=== PATIENT | male | born 1950 | race Caucasian/White ===

== ENCOUNTER 2016-08-28 12:47 | Outpatient (CLI) | payer MEDICARE, OTHER | END 2016-08-28 12:48 | disposition home or self-care (01) | DX: K76.0 Fatty (change of) liver, not elsewhere classified (principal); B18.2 Chronic viral hepatitis C ==

== ENCOUNTER 2021-06-15 01:44 | Outpatient (CLI) | payer OTHER | END 2021-06-15 01:45 | disposition critical access hospital (66) | LOC: EMS 01:44 | DX: R51.9 Headache, unspecified (principal); R26.0 Ataxic gait; R20.2 Paresthesia of skin; H53.8 Other visual disturbances; I10 Essential (primary) hypertension | CPT/HCPCS: A0425; A0429 ==

== ENCOUNTER 2021-06-15 02:17 | Inpatient (IN) | payer MEDICARE, OTHER ==
--- NOTE | 2021-06-15 02:16 | ED Physician Documentation ---
PD HPI FOCAL NEURO - Stated complaint Stated Complaint: JIMENEZ/BLURRED VISION - History obtained from History obtained from: Patient - History of Present Illness Timing - onset: Enter time (12:00 (noon)) Timing - details: Abrupt onset Severity of deficit: Mild Numbness: Arm, Hand, Leg, Foot, Left Associated symptoms: Headache. No: Nausea / vomiting, Chest pain, Neck pain, Back pain, Fever Contributing factors: negative: Anticoagulated, Vascular dz, Atrial fibrillation, Prosthetic heart valve Baseline status: positive: A&OX3, ambulatory, indep Similar symptoms before: Has not had sx before Recently seen: Not recently seen - Additional information Additional information: BIBA. Patient developed rapid onset right retro-orbital headache around noon associated with bilateral visual changes; he denies double/blurry vision, but he says he has difficulty seeing the left-most part of a word when reading or the left side of a clockface. He denies having had similar headache and/or visual changes in the past. At approximately 8 PM, he found that he was unsteady when he tried to ambulate and around this time he also noted LUE and LLE numbness. He denies having any weakness. He says his symptoms have improved significantly, with the LUE no longer numb and the LLE only with mild "pins and needles" (per patient). his right sided headache persists Review of Systems Constitutional: reports: Reviewed and negative Eyes: reports: Loss of vision Ears: reports: Reviewed and negative Nose: reports: Reviewed and negative Throat: reports: Reviewed and negative Cardiac: reports: Reviewed and negative Respiratory: reports: Reviewed and negative GI: reports: Reviewed and negative : reports: Reviewed and negative Skin: reports: Reviewed and negative Musculoskeletal: reports: Reviewed and negative Neurologic: reports: Numbness. denies: Generalized weakness, Focal weakness, Di fficulty speaking, Confused, Altered mental status, Headache, Head injury, LOC PD PAST MEDICAL HISTORY - Past Medical History Past Medical History: Yes Cardiovascular: Hypertension - Past Surgical History Past Surgical History: No - Present Medications Home Medications: Ambulatory Orders Medication Instructions Recorded Confirmed Lisinopril [Zestril] 10 mg PO DAILY 06/15/21 06/15/21 - Allergies Allergies/Adverse Reactions: Allergies Allergy/AdvReac Type Severity Reaction Status Date / Time iodine Allergy Anaphylaxis Verified 06/15/21 02:28 shellfish derived Allergy Anaphylaxis Verified 06/15/21 02:29 - Living Situation Living Arrangement: reports: At home - Social History Does the pt smoke?: Yes Smoking Status: Current every day smoker PD ED PE NORMAL - Vitals Vital signs reviewed: Yes - General General: Alert and oriented X 3, No acute distress, Well developed/nourished - HEENT HEENT: Atraumatic, PERRL, EOMI, Moist mucous membranes - Neck Neck: Supple, no meningeal sign - Cardiac Cardiac: RRR, No murmur, No gallop, No rub - Respiratory Respiratory: No respiratory distress, Clear bilaterally - Abdomen Abdomen: Soft, Non tender - Extremities Extremities: No edema - Neuro Neuro: Alert and oriented X 3, 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, No motor deficit, No sensory deficit, Normal speech Eye Opening: Spontaneous Motor: Obeys Commands Verbal: Oriented GCS Score: 15 - Psych Psych: Normal mood, Normal affect NIHSS - Level of Consciousness Level of consciousness: (0) Alert, Keenly responsive LOC Questions: (0) Answers both Q's correct LOC Commands: (0) Performs both correctly - Gaze Best Gaze: (0) Normal - Visual Visual: (0) No loss - Facial Palsy Facial Palsy: (0) Normal, symmetrical movement - Motor Arms (both separate) Motor Arm (right): (0) No drift Motor Arm (left): (0) No drift - Motor Legs (both separate) Motor Leg (right): (0) No drift Motor Leg (left): (0) No drift - Limb Ataxia Limb Ataxia: (0) Absent - Sensory Sensory: (0) Normal - Best Language Best Language: (0) No aphasia - Dysarthria Dysarthria: (0) Normal - Extinction and Inattention (formally neg Extinction and inattention: (0) No abnormality - Total Score/Results Total Score/Result: 0 Results - Vitals Vitals: Vital Signs - 24 hr 06/15/21 06/15/21 06/15/21 02:29 02:45 03:00 Temperature 37.1 C 37.1 C Heart Rate 91 78 78 Respiratory 12 11 L 11 L Rate Blood Pressure 193/92 H 193/90 H 176/86 H O2 Saturation 100 100 98 06/15/21 03:30 Temperature Heart Rate 80 Respiratory 17 Rate Blood Pressure 187/90 H O2 Saturation 98 Oxygen O2 Source Room air - EKG (time done) No standard instances Rate: Rate (enter#) (85) Rhythm: NSR [place]: Normal Intervals: Normal DC QRS: Normal Ischemia: Non specific changes (V4-V6 NSST changes) - Labs Labs: Laboratory Tests 06/15/21 06/15/21 06/15/21 02:29 02:29 02:29 WBC 13.5 H RBC 4.37 L Hgb 12.5 L Hct 38.7 L MCV 88.6 MCH 28.6 MCHC 32.3 RDW 13.2 Plt Count 328 MPV 10.7 Neut # (Auto) 8.1 H Lymph # (Auto) 3.8 H [place] # (Auto) 1.2 H Eos # (Auto) 0.3 Baso # (Auto) 0.1 Absolute Nucleated RBC 0.00 Nucleated RBC % 0.0 PT 11.6 INR 1.0 APTT 30.1 Sodium 139 Potassium 3.6 Chloride 104 Carbon Dioxide 25 Anion Gap 10.0 BUN 13 Creatinine 1.3 H Estimated GFR (MDRD) 55 L Glucose 112 H Calcium 9.4 Total Bilirubin 0.6 AST 18 ALT 11 Alkaline Phosphatase 77 Troponin I High Sens Total Protein 8.0 Albumin 4.0 Globulin 4.0 Albumin/Globulin Ratio 1.0 Triglycerides Cholesterol LDL Cholesterol, Calc VLDL Cholesterol HDL Cholesterol LDL/HDL Ratio Cholesterol/HDL Ratio Lipase 39 TSH Nasal Adenovirus (PCR) Nasal B. parapertussis DNA (PCR) Nasal Coronavir 229E PCR Nasal Coronavir HKU1 PCR Nasal Coronavir NL63 PCR Nasal Coronavir OC43 PCR Nasal Enterovir/Rhinovir PCR Nasal Influenza B PCR Nasal Influenza A PCR Nasal Parainfluen 1 PCR Nasal Parainfluen 2 PCR Nasal Parainfluen 3 PCR Nasal Parainfluen 4 PCR Nasal RSV (PCR) Nasal B.pertussis DNA PCR Nasal C.pneumoniae (PCR) Constantin Human Metapneumo PCR Nasal M.pneumoniae (PCR) Nasal SARS-CoV-2 (PCR) 06/15/21 06/15/21 06/15/21 02:29 02:29 02:29 WBC RBC Hgb Hct MCV MCH MCHC RDW Plt Count MPV Neut # (Auto) Lymph # (Auto) [place] # (Auto) Eos # (Auto) Baso # (Auto) Absolute Nucleated RBC Nucleated RBC % PT INR APTT Sodium Potassium Chloride Carbon Dioxide Anion Gap BUN Creatinine Estimated GFR (MDRD) Glucose Calcium Total Bilirubin AST ALT Alkaline Phosphatase Troponin I High Sens 8.2 Total Protein Albumin Globulin Albumin/Globulin Ratio Triglycerides 226 H Cholesterol 218 H LDL Cholesterol, Calc 141 H VLDL Cholesterol 45 HDL Cholesterol 32 L LDL/HDL Ratio 4.4 Cholesterol/HDL Ratio 6.8 Lipase TSH 3.84 Nasal Adenovirus (PCR) Nasal B. parapertussis DNA (PCR) Nasal Coronavir 229E PCR Nasal Coronavir HKU1 PCR Nasal Coronavir NL63 PCR Nasal Coronavir OC43 PCR Nasal Enterovir/Rhinovir PCR Nasal Influenza B PCR Nasal Influenza A PCR Nasal Parainfluen 1 PCR Nasal Parainfluen 2 PCR Nasal Parainfluen 3 PCR Nasal Parainfluen 4 PCR Nasal RSV (PCR) Nasal B.pertussis DNA PCR Nasal C.pneumoniae (PCR) Constantin Human Metapneumo PCR Nasal M.pneumoniae (PCR) Nasal SARS-CoV-2 (PCR) 06/15/21 03:06 WBC RBC Hgb Hct MCV MCH MCHC RDW Plt Count MPV Neut # (Auto) Lymph # (Auto) [place] # (Auto) Eos # (Auto) Baso # (Auto) Absolute Nucleated RBC Nucleated RBC % PT INR APTT Sodium Potassium Chloride Carbon Dioxide Anion Gap BUN Creatinine Estimated GFR (MDRD) Glucose Calcium Total Bilirubin AST ALT Alkaline Phosphatase Troponin I High Sens Total Protein Albumin Globulin Albumin/Globulin Ratio Triglycerides Cholesterol LDL Cholesterol, Calc VLDL Cholesterol HDL Cholesterol LDL/HDL Ratio Cholesterol/HDL Ratio Lipase TSH Nasal Adenovirus (PCR) NOT DETECTED Nasal B. parapertussis DNA (PCR) NOT DETECTED Nasal Coronavir 229E PCR NOT DETECTED Nasal Coronavir HKU1 PCR NOT DETECTED Nasal Coronavir NL63 PCR NOT DETECTED Nasal Coronavir OC43 PCR NOT DETECTED Nasal Enterovir/Rhinovir PCR NOT DETECTED Nasal Influenza B PCR NOT DETECTED Nasal Influenza A PCR NOT DETECTED Nasal Parainfluen 1 PCR NOT DETECTED Nasal Parainfluen 2 PCR NOT DETECTED Nasal Parainfluen 3 PCR NOT DETECTED Nasal Parainfluen 4 PCR NOT DETECTED Nasal RSV (PCR) NOT DETECTED Nasal B.pertussis DNA PCR NOT DETECTED Nasal C.pneumoniae (PCR) NOT DETECTED Constantin Human Metapneumo PCR NOT DETECTED Nasal M.pneumoniae (PCR) NOT DETECTED Nasal SARS-CoV-2 (PCR) NOT DETECTED - Rads (name of study) CT head Radiology: Prelim report reviewed, See rad report PD MEDICAL DECISION MAKING - ED course Complexity details: reviewed results, re-evaluated patient, considered differential, d/w patient ED course: Telestroke consulted (Dr. Cr) after CTH completed and tests resulted. He recommends MRI/MRA and give ASA PO QD (please see consult for details). I asked Dr. Cr if CTA head/neck should be undertaken at this time; he says this isn't necessary at this time provided the MRI/MRA can be performed later today (I had also explained MRI not available at night but will be available later this morning). - TPA CVA checklist Inclusion crititeria: positive: CT no bleed. negative: Sig neuro deficit, Onset know < 4.5 hr Departure - Departure Disposition: ED Place in Observation Clinical Impression: Visual changes, Paresthesia Condition: Stable Discharge Date/Time: 06/15/21 04:13
[2021-06-15 02:36] LABS: BASOPHILS # (AUTO) 0.1 10^3/uL (0.0-0.1); BASOPHILS % (AUTO) 0.5 %; EOSINOPHILS # (AUTO) 0.3 10^3/uL (0.0-0.7); EOSINOPHILS % (AUTO) 2.4 %; HCT - HEMATOCRIT 38.7 % (42.0-52.0); HGB - HEMOGLOBIN 12.5 g/dL (14.0-18.0); LYMPHOCYTES # (AUTO) 3.8 10^3/uL (1.5-3.5); LYMPHOCYTES % (AUTO) 28.2 %; MEAN CORPUSCULAR HEMOGLOBIN 28.6 pg (27.0-31.0); MEAN CORPUSCULAR HGB CONC 32.3 g/dL (32.0-36.0); MEAN CORPUSCULAR VOLUME 88.6 fL (80.0-94.0); MEAN PLATELET VOLUME 10.7 fL (7.4-11.4); MONOCYTES # (AUTO) 1.2 10^3/uL (0.0-1.0); MONOCYTES % (AUTO) 8.9 %; NEUTROPHILS # (AUTO) 8.1 10^3/uL (1.5-6.6); NEUTROPHILS % (AUTO) 59.8 %; PLT - PLATELET COUNT 328 10^3/uL (130-450); RED BLOOD COUNT 4.37 10^6/uL (4.70-6.10); RED CELL DISTRIBUTION WIDTH 13.2 % (12.0-15.0); WHITE BLOOD COUNT 13.5 x10^3/uL (4.8-10.8)
[2021-06-15 02:52] LABS: PT - PROTHROMBIN TIME 11.6 secs (9.9-12.6)
[2021-06-15 02:59] LABS: BILIRUBIN,TOTAL 0.6 mg/dL (0.2-1.0); CALCIUM 9.4 mg/dL (8.5-10.3); CREATININE 1.3 mg/dL (0.6-1.2); POTASSIUM 3.6 mmol/L (3.5-5.0)
[2021-06-15 03:00] LABS: PARTIAL THROMBOPLASTIN TIME 30.1 secs (24.9-33.3)
[2021-06-15] MEDS ORDERED: ASPIRIN CHEW 81 MG TABLET PO STA (03:13)
[2021-06-15] MEDS ORDERED: ONDANSETRON 4 MG/2 ML VIAL IVP PRN (03:44)
[2021-06-15] MEDS ORDERED: SODIUM CHLORIDE FLUSH 0.9% 10 ML SYRINGE IVP PRN (03:44)
--- NOTE | 2021-06-15 03:47 | HISTORY & PHYSICAL EXAMINATION ---
Chief Complaint - Chief Complaint Chief Complaint: right eye pain and bluriness, left leg and arm numbness History of Present Illness - Admitted From Admitted From:: [facility] ED - History Obtained From Records Reviewed: yes History obtained from: patient - History of Present Illness HPI Comment/Other: Patient is a 71-year-old male who presented to the ED with complaint of pain behind his right eye which started around noon. His vision then became blurry. He did not immediately seek medical attention. Tonight around 10 PM while he was getting ready for bed he felt "woozy". He also began experiencing left leg and left arm numbness. Furthermore he described a feeling of tingling and numbness on his lips and a metallic taste. As a result EMS was called and he was brought to the ED for evaluation. By the time of exam his symptoms had resolved except for very faint numbness in his left leg. Work-up in the ED included CT of the head without contrast which was negative for any acute intracranial pathology. Telestroke consult was made and recommendation was for an MRI/MRA head and neck for further work-up. As a result the patient was presented for admission. At bedside he was resting comfortably. He denied chest pain, dyspnea, abdominal pain, nausea, vomiting, fever or chills. He reports feeling bloated. His neuro exam was negative. History - Past Medical History Cardiovascular: reports: Hypertension, High cholesterol Neuro: reports: Headaches GI: reports: Hepatitis Musculoskeletal: reports: Osteoarthritis, Other MRSA Hx?: No Other Past Medical History: chronic rt knee pain - Past Surgical History Other past surgical history: He denies any surgical history - Family & Social History Family History Comment/Other: His father at age 51 from an ID. His mother at age 89 from Alzheimer's. One of his siblings, a sister from unknown cause. Social History Notes: He lives at home with a significant order. He is independent of activities of daily living. 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 He smokes 1 pack of cigarettes daily and has been smoking for 50 years. He rarely consumes alcohol. He uses CBD for sleep. - POLST Patient has POLST: No POLST Status: DNR Meds/Allgy - Home Medications Home Medications: Ambulatory Orders Medication Instructions Recorded Confirmed Lisinopril [Zestril] 10 mg PO DAILY 06/15/21 06/15/21 - Allergies Allergies/Adverse Reactions: Allergies Allergy/AdvReac Type Severity Reaction Status Date / Time iodine Allergy Anaphylaxis Verified 06/15/21 02:28 shellfish derived Allergy Anaphylaxis Verified 06/15/21 02:29 Review of Systems - Constitutional Constitutional: denies: Fatigue, Fever, Weakness, Poor appetite - Eyes Eyes: reports: Pain, Blurred vision - Ears, Nose & Throat Ears, Nose & Throat: denies: Vertigo - Cardiovascular Cariovascular: denies: Chest pain, Edema, Lightheadedness, Syncope, Exertional dyspnea - Respiratory Respiratory: denies: Wheezing, SOB at rest, SOB with exertion - Gastrointestinal Gastrointestinal: reports: Bloating. denies: Abdominal pain, Abdominal dis tention, Nausea, Vomiting - Genitourinary Genitourinary: denies: Dysuria, Frequency, Urgency - Musculoskeletal Musculoskeletal: reports: Joint pain (Right knee). denies: Muscle pain, Back pain - Integumentary Integumentary: denies: Rash, Pruritis, Lesions - Neurological Neurological: reports: Numbness. denies: General weakness, Focal weakness, Headache - Psychiatric Psychiatric: denies: Depression, Anxiety - Endocrine Endocrine: denies: Polyuria, Polydypsia - Hematologic/Lymphatic Hematologic/Lymphatic: denies: Anemia, Bruising, Petechiae Prior Level of Functionality: He is independent of activities of daily living. 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 Exam - Vital Signs Vital Signs: Vital Signs x48h Temp Pulse Resp BP Pulse Ox 06/15/21 03:30 80 17 187/90 H 98 06/15/21 03:00 78 11 L 176/86 H 98 06/15/21 02:45 37.1 C 78 11 L 193/90 H 100 06/15/21 02:29 37.1 C 91 12 193/92 H 100 - Physical Exam General Appearance: positive: No acute distress, Alert Eyes Bilateral: positive: PERRL, EOMI ENT: positive: No signs of dehydration Neck: positive: No JVD, Trachea midline Respiratory: positive: Chest non-tender, No respiratory distress, Breath sounds nml. negative: Wheezes, Rales, Rhonchi Cardiovascular: positive: Regular rate & rhythm, No murmur Abdomen: positive: Non-tender, No organomegaly, Nml bowel sounds, No distention. negative: Guarding, Rebound Back: positive: Nml inspection Skin: positive: No rash, Warm, Dry Extremities: positive: Non-tender, Full ROM, Nml appearance, No pedal edema Neurologic/Psychiatric: positive: Oriented x3, Motor nml, Sensation nml, Mood/affect nml Conclusion/Plan - Problem List (1) TIA (transient ischemic attack) Conclusion/Plan: Symptoms consisted of right retro-orbital pain, blurry vision, numbness in left arm and left leg and numbness and tingling around lips. Symptoms have all resolved except for faint numbness and left leg. CT brain without contrast was negative for any acute intracranial abnormality. Telestroke consult done. Recommended MRI/MRA head and neck. This has been ordered. 2D echocardiogram, lipid panel, hemoglobin A1c also ordered. Neurochecks every shift. (2) Hypertension Conclusion/Plan: Patient takes lisinopril 10 mg p.o. daily at home. At presentation systolic blood pressure was 193. We will treat if systolic blood pressure greater than 180. Hydralazine 10 mg every 4 hours as needed ordered. (3) Osteoarthritis Conclusion/Plan: Patient is reluctant to undergo surgery. Pain management as needed. Qualifiers: Osteoarthritis location: knee Laterality: right (4) MOON (acute kidney injury) Conclusion/Plan: Mild. Possibly chronic. Creatinine 1.3 with estimated GFR of 55. Possibly secondary to hypertension. Will monitor. (5) Leukocytosis Conclusion/Plan: WBC was 13.5. Suspect this is reactive. Will monitor. - Lab Results Fish Bones: 06/15/21 02:29 06/15/21 02:29 Core Measures - Anticipated LOS I expect patient to be DC'd or transferred within 96 hours.: Yes - DVT/VTE - Prophylaxis VTE/DVT Device ordered at admit?: Yes
[2021-06-15 04:05] LABS: B. PARAPERTUSSIS- RESP PCR PAN NOT DETECTED; B. PERTUSSIS- RESP PCR PANEL NOT DETECTED; C. PNEUMONIAE- RESP PCR PANEL NOT DETECTED; CORONAVIRUS 229E-RESP PCR NOT DETECTED; CORONAVIRUS HKU1-RESP PCR NOT DETECTED; CORONAVIRUS NL63-RESP PCR NOT DETECTED; CORONAVIRUS OC43-RESP PCR NOT DETECTED; HUMAN METAPNEUMOVIRUS NOT DETECTED; INFLUENZA A- RESP PCR PANEL NOT DETECTED; INFLUENZA B - RESP PCR PANEL NOT DETECTED; M. PNEUMONIAE- RESP PCR PANEL NOT DETECTED; PARAINFLUENZA VIRUS 1 NOT DETECTED; PARAINFLUENZA VIRUS 2 NOT DETECTED; PARAINFLUENZA VIRUS 3 NOT DETECTED; PARAINFLUENZA VIRUS 4 NOT DETECTED; RHINOVIRUS/ENTEROVIRUS NOT DETECTED; RSV- RESP PCR PANEL NOT DETECTED; SARS-CoV-2 -RESP PCR PANEL NOT DETECTED
[2021-06-15] MEDS ORDERED: hydrALAZINE INJ 20 MG/ML VIAL IVP PRN (04:10)
[2021-06-15 04:12] LABS: CHOL/HDL RATIO 6.8 (<5.0); CHOLESTEROL 218 mg/dL; HDL CHOLESTEROL 32 mg/dL; LDL CHOLESTEROL,CALCULATED 141 mg/dL; LDL/HDL RATIO 4.4 (<3.6); TRIGLYCERIDES 226 mg/dL; VLDL CHOLESTEROL 45 mg/dL
--- NOTE | 2021-06-15 08:43 | CT Report ---
PROCEDURE: Head W/O Stroke Protocol INDICATIONS: headache, numbness TECHNIQUE: Noncontrast 4.5 mm thick angled axial sections acquired from the foramen magnum to the vertex, with c oronal reformats. For radiation dose reduction, the following was used: automated exposure control, adjustment of mA and/or kV according to patient size. COMPARISON: FINDINGS: Image quality: Excellent. The ventricular system and cortical sulci demonstrate atrophy, consistent for patient's stated age. There are areas of hypodensity in the periventricular and subcortical white matter. There is no acut e intra or extra-axial fluid collection. No acute hemorrhage, mass lesion or midline shift. Focus o f low-attenuation is noted within the right centrum semiovale most suggestive of old ischemia. Brains tem is unremarkable. Globes are symmetrical. Sinuses are aerated. Osseous structures are intact. IMPRESSION: 1. No acute intracranial process. 2. Moderate atrophy and chronic microvascular ischemic changes. The above findings are concordant with preliminary report. This study fulfills neurological imaging criteria for inclusion or exclusion of acute stroke therapie s based on available published neurological imaging guidelines. Reviewed by: Shara Hidalgo MD on 06/15/2021 8:42 AM PST Approved by: Shara Hidalgo MD on 06/15/2021 8:42 AM PST Station ID: [id number]
[2021-06-15] MEDS: ACETAMINOPHEN 325 MG TABLET PO PRN ×2 (09:54→22:46)
[2021-06-15] MEDS: SODIUM CHLORIDE FLUSH 0.9% 10 ML SYRINGE IVP SCH ×2 (09:58→17:15)
[2021-06-15] MEDS ORDERED: GADOBUTROL 10 MMOL/10 ML VIAL ONE (10:32)
[2021-06-15] MEDS: NICOTINE 14 MG PATCH TOP SCH (12:04)
[2021-06-15 12:23] LABS: ESTIMATED AVERAGE GLUCOSE 117 mg/dL (70-100); HEMOGLOBIN A1c% 5.7 % (4.27-6.07)
--- NOTE | 2021-06-15 13:33 | MRI Report ---
PROCEDURE: Brain W/WO INDICATIONS: RIGHT EYE PAIN AND BLURRINESS CONTRAST: IV CONTRAST: Gadavist ml: 10 TECHNIQUE: Noncontrast axial T1 spin echo, axial T2 fast spin echo, sagittal and axial FLAIR, coronal T2 fast sp in echo, axial gradient echo, axial diffusion and ADC through the brain. After the administration of contrast, axial and coronal T1 spin echo with fat saturation through the brain. COMPARISON: MRA head and neck 06/07/2021. FINDINGS: Image quality: Excellent. The ventricular system and cortical sulci demonstrate atrophy, consistent for patient's stated age. There are areas of hyperintense T2/FLAIR signal in the periventricular and subcortical white matter. There is no acute intra or extra-axial fluid collection. No acute hemorrhage, mass lesion or midlin e shift. Brainstem is unremarkable. Hyperintensity within the right occipital lobe is present with c orresponding hyperintense T2/FLAIR and hypointense ADC signal. Globes are symmetrical. Sinuses are ae rated. Osseous structures are intact. IMPRESSION: Restricted diffusion within the right occipital lobe with corresponding hypointense ADC signal most c onsistent with subacute ischemia. No superimposed hemorrhage. Moderate atrophy and chronic microvascular ischemic changes. Reviewed by: Shara Hidalgo MD on 06/15/2021 1:32 PM PST Approved by: Shara Hidalgo MD on 06/15/2021 1:32 PM PST Station ID: [id number]
--- NOTE | 2021-06-15 13:48 | MRI Report ---
PROCEDURE: Angio Neck W/WO (MRA) INDICATIONS: right eye pain and bluriness CONTRAST: IV CONTRAST: Gadavist ml: 10 TECHNIQUE: Axial and sagittal balanced GE through the neck. Coronal dynamic MRA after the administration of con trast in the arterial and venous phases, with rotating 3-dimensional maximum intensity projection ([place] P) reformats constructed from subtraction images. COMPARISON: MRI head, MRA neck 06/15/2021 FINDINGS: Image quality: Excellent. The origins of the left and right common, internal and external carotid arteries demonstrate no areas of hemodynamically significant stenosis, vascular occlusion or aneurysmal dilation. Origin of the ri ght vertebral artery demonstrates no areas of hemodynamically significant stenosis, vascular occlusio n or aneurysmal dilation. Very minimal areas of atretic scattered signal are noted along the expected course of the left vertebral artery. Aortic arch demonstrates conventional anatomy. Limited, visuali zed portions of the subclavian vasculature are unremarkable. IMPRESSION: Poorly visualized left vertebral artery suspected to be occluded throughout its course. As clinically indicated, further evaluation with CTA may be obtained. Reviewed by: Shara Hidalgo MD on 06/15/2021 1:46 PM PST Approved by: Shara Hidalgo MD on 06/15/2021 1:46 PM PST Station ID: [id number]
--- NOTE | 2021-06-15 13:50 | MRI Report ---
PROCEDURE: Angio Brain W/O (MRA) INDICATIONS: RIGHT EYE PAIN AND BLURRINESS TECHNIQUE: Noncontrast axial 3-D [id number] MR angiogram, with 3-dimensional maximum intensity projection (M IP) reformats of the internal carotid arteries and posterior circulation then performed. COMPARISON: MRI brain and MRA neck 06/15/2021. FINDINGS: Image quality: Excellent. Anterior circulation: Intracranial internal carotid arteries demonstrate normal size and intralumina l flow signal. The flow within the paired anterior cerebral arteries is normal and symmetric. The f low within the middle cerebral arteries is normal and symmetric. The anterior communicating artery i s seen. No stenoses, occlusions, or aneurysms. Posterior circulation: No definitive signal is identified within the region of the left vertebral art boby. There is a right vertebral artery dominance. The flow within the posterior cerebral arteries is normal and symmetric. No stenoses, occlusions, or aneurysms. IMPRESSION: Nonvisualization left vertebral artery suspicious for occlusion. Please see MRA neck exam of for further details. Reviewed by: Shara Hidalgo MD on 06/15/2021 1:49 PM PST Approved by: Shara Hidalgo MD on 06/15/2021 1:49 PM PST Station ID: [id number]
[2021-06-15] MEDS: CLOPIDOGREL 75 MG TABLET PO SCH (16:14)
[2021-06-15] MEDS ORDERED: GADOBUTROL 10 MMOL/10 ML VIAL IVP ONE (16:19)
--- NOTE | 2021-06-15 16:20 | PROVIDER PROGRESS NOTE ---
Assessment/Plan - Problem List (1) CVA (cerebral vascular accident) Assessment/Plan: Patient presented to the Ed today with left side blurred vision, right restoration pain, numbness and tingling to left arms and legs. He denies history of stroke or TIA. MRI of the head on 06/15/21 showed "Restricted diffusion within the right occipital lobe with corresponding hypointese ADC signal most consistent with subacute inschema". Cardiac Echo with bubble study from 06/15/21 was unremarkable and showed an EF of 60-65%. Upon exam he has no focal neuro deficient. CN II-XII intact. Patient denies dizziness, vertigo, tinnitus, sensory loss, or syncope. He reports persistent blurred vision to left side of both eyes. Tele Stroke (Dr. Harvey) was contact and recommended "Plavix 75mg QD for 1 month and Aspirin 325mg PO daily for 1 month then decrease to 81mg PO daily for life. PT/OT evaluation. Out patient follow up to monitor A-fib with an external electronic device monitor." During exam he reported intermittent numbness and tingling to lower lip resumed. Tele Stroke (Dr. 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 Discussed that he will no longer be permitted to drive until he has been evaluated for improved symptoms. Plan: Admit to Inpatient status due to stuttering stroke and continue to monitor patient's neuro status. Start Plavix 75mg PO daily with first dose now. Start Aspirin 325mg PO daily. Start Cholesterol treatment. PT/ OT consult with OT for eye exercises. neighborhood worker consult due new driving restriction. (2) Vertebral artery occlusion Assessment/Plan: Patient presented to the Ed today with left side blurred vision, right restoration pain, numbness and tingling to left arms and legs. He denies history of stroke or TIA. Upon exam he has no focal neuro deficient. CN II-XII intact. MRA of neck on 06/15/21 showed "poorly visualized left vertebral artery suspected to be occluded throughout its course". Patient denies dizziness, vertigo, tinnitus, sensory loss, or syncope. He reports persistent blurred vision to left side of both eyes. Tele Stroke was contact and Dr. Harvey recommended Plavix 75mg QD for 1 month and Aspirin 325mg PO daily for 1 month then decrease to 81mg PO daily for life." Plan: Continue to monitor patient neuro status. Start Plavix 75mg PO daily with first dose now. Start Aspirin 325mg PO daily. Start cholesterol treatment. PT/ OT consult with OT for eye exercises. neighborhood worker consult due new driving restriction. (3) Hyperlipidemia Assessment/Plan: Patient reports history of hyperlipidemia and was on medication 6 months ago when he discussed with his doctor stopping his medication. He denies history hypertriglyceridemia. He presented to the ED with blurred vision and left side numbness and tingling. His admission labs showed triglycrides 226, cholesterol 218, LDL 141, and HDL 32. Plan: Start Lipitor 40mg PO nightly for hyperlipidemia. Start Fenofibrate 144mg PO daily for hypertriglyceridemia. Nutrition consult tomorrow to discuss a healthy diet low in fat, sugar, and high in fiber. (4) Pre-diabetes Assessment/Plan: No history of diabetes but patient reports that he has been told by other providers that he is "pre-diabetic". Upon admission is serum glucose was 117, his A1c was 5.9, and his triglycerides were 226. Plan: Monitor serum glucose. Begin sliding scale insulin if patient becomes hyperglycemia. Discuss healthy diet choices and obtain nutrition consult. (5) MOON (acute kidney injury) Assessment/Plan: Admission creatinine is mildly elevated at 1.3 and estimated GFR is 55. No previous admission for comparison. This is possibly chronic and due to hypertension. Plan: Will continue to monitor for BMP. We will avoid nephrotoxins. (6) Elevated sed rate Assessment/Plan: Patient presented to the ED with bilateral blurred vision, numbness and tingling on left extremties, and right eye pain. Patient reports pain is 4/10 and sharp/ aching in nature to his right restoration. He denies scalp or restoration tenderness, jaw claudication, recent infection, or fever. He reports associated left side blurred vision with both eyes. ESR was elevated at 46. WBCs are elevated at 13.5, patient is afebrile. MRA of neck on 06/15/21 showed "poorly visualized left vertebral artery suspected to be occluded throughout its course". The results of the MRA were discussed with Tele Stroke who concluded that the vision changes are related to the vertebral artery occlusion. The elevated ESR is most likely incidental finding due to patient's age and mild anemia versus infection or temporal arteritis. Plan: Continue to trend ESR. Monitor patient for worsening pain or vision changes. Consider a temporal artery ultrasound if symptoms worsen or he develops temporal artery swelling/ tenderness or jaw claudication. Consider urine and/or blood cultures if patient becomes febrile or develops urinary symptoms. (7) Leukocytosis Assessment/Plan: Patient admitted as observation initially today for vision changes concerning for a stroke. Upon admission his WBC was elevated at 13.5. He denies any recent illness, cough, congestion, fever, chills, or urinary symptoms. This is most likely reactive. Plan: Will continue to monitor with with CBC daily. (8) Hypertension Assessment/Plan: Patient has a history of HTN and takes lisinopril 10 mg p.o. daily at home. His systolic blood pressure is 140-170s. Neck MRA showed "a left vertebral artery suspected to be occluded throughout its course". Tele Stroke was contacted and recommended to allow permissive hypertension for 24 hours. Plan: Continue to monitor blood pressure. Will consider resuming home Lisinopril after 24 hours. - Current Meds Current Meds: Current Medications Generic Name Dose Route Start Last Admin Trade Name Freq PRN Reason Stop Dose Admin Acetaminophen 650 mg 06/15/21 03:44 06/15/21 09:54 Acetaminophen 325 Mg Tablet PO 650 mg Q4HR PRN Administration Pain 1 to 4 Clopidogrel Bisulfate 75 mg 06/15/21 16:08 06/15/21 16:14 Clopidogrel 75 Mg Tablet PO 75 mg DAILY BRIGITTE Administration Nicotine 1 patch 06/15/21 10:20 06/15/21 12:04 Nicotine 14 Mg Patch TOP 1 patch DAILY BRIGITTE Administration Sodium Chloride 10 ml 06/15/21 09:00 06/15/21 09:58 Sodium Chloride Flush 0.9% 10 Ml Syringe IVP 10 ml 0100,0900,1700 BRIGITTE Administration - Lab Result Fish Bone Diagrams: 06/15/21 02:29 06/15/21 02:29 - Diagnostic Imaging Results Diagnostic Imaging Results: Final report reviewed - Additional Planning Condition/Complexity: Guarded Consult/Specialty: Neurology Plan Discussed with:: Patient Subjective - Subjective Patient Reports: Feeling Better, Resting Comfortably, Other (Reports right tempral headache 07/26.) Nursing Reports: No Complaints Objective Vital Signs: Vital Signs - 24 hr 06/15/21 06/15/21 06/15/21 02:29 02:45 03:00 Temperature 37.1 C 37.1 C Heart Rate 91 78 78 Heart Rate [ Monitoring electrodes] Respiratory 12 11 L 11 L Rate Blood Pressure 193/92 H 193/90 H 176/86 H Blood Pressure [Right Brachial artery] O2 Saturation 100 100 98 06/15/21 06/15/21 06/15/21 03:30 04:30 07:15 Temperature 36.6 C 37.2 C Heart Rate 80 Heart Rate [ 82 74 Monitoring electrodes] Respiratory 17 18 18 Rate Blood Pressure 187/90 H Blood Pressure 178/92 H 148/80 H [Right Brachial artery] O2 Saturation 98 100 96 06/15/21 06/15/21 13:39 13:40 Temperature 36.7 C 36.7 C Heart Rate Heart Rate [ 83 79 Monitoring electrodes] Respiratory 18 17 Rate Blood Pressure Blood Pressure 165/71 H 150/72 H [Right Brachial artery] O2 Saturation 95 95 Oxygen O2 Source Room air I&O (Last 24 Hrs): Intake and Output Totals x24h 06/13/21 06/14/21 06/15/21 23:59 23:59 23:59 Intake Total 1110 Output Total 250 Balance 860 General: Alert, Oriented x3 HEENT: Atraumatic, PERRLA, EOMI Neck: Supple Neuro: Alert, Non Focal, CN 2-12 Grossly Intact, Oriented Times 3, Other (blurred vision of left visual field of bilateral eye. Reports intermittent numbness and tingling to lower lip.) Cardiovascular: Regular rate, Normal S1, Normal S2, No murmurs Respiratory: Chest non-tender, No respiratory distress, Breath sounds nml Abdomen: Normal bowel sounds, Soft, No tenderness, No hepatospenomegaly, No masses Extremities: No clubbing, No cyanosis, No edema, Normal pulses Skin: No rashes - Results Results: Laboratory Results WBC 13.5 x10^3/uL (4.8-10.8) H 06/15/21 02: RBC 4.37 10^6/uL (4.70-6.10) L 06/15/21 02:29 Hgb 12.5 g/dL (14.0-18.0) L 06/15/21 02:29 Hct 38.7 % (42.0-52.0) L 06/15/21 02:29 MCV 88.6 fL (80.0-94.0) 06/15/21 02: MCH 28.6 pg (27.0-31.0) 06/15/21 02: MCHC 32.3 g/dL (32.0-36.0) 06/15/21 02: RDW 13.2 % (12.0-15.0) 06/15/21 02: Plt Count 328 10^3/uL (130-450) 06/15/21 02: MPV 10.7 fL (7.4-11.4) 06/15/21 02: Neut # (Auto) 8.1 10^3/uL (1.5-6.6) H 06/15/21 02: Lymph # (Auto) 3.8 10^3/uL (1.5-3.5) H 06/15/21 02: Upson # (Auto) 1.2 10^3/uL (0.0-1.0) H 06/15/21 02: Eos # (Auto) 0.3 10^3/uL (0.0-0.7) 06/15/21 02: Baso # (Auto) 0.1 10^3/uL (0.0-0.1) 06/15/21 02: Absolute Nucleated RBC 0.00 x10^3/uL 06/15/21 02: Nucleated RBC % 0.0 /100WBC 06/15/21 02: ESR 46 mm/Hr (0-20) H 06/15/21 12:44 PT 11.6 secs (9.9-12.6) 06/15/21 02: INR 1.0 (0.8-1.2) 06/15/21 02: APTT 30.1 secs (24.9-33.3) 06/15/21 02: Sodium 139 mmol/L (135-145) 06/15/21 02: Potassium 3.6 mmol/L (3.5-5.0) 06/15/21 02: Chloride 104 mmol/L (101-111) 06/15/21 02: Carbon Dioxide 25 mmol/L (21-32) 06/15/21 02:29 Anion Gap 10.0 (6-13) 06/15/21 02: BUN 13 mg/dL (6-20) 06/15/21 02:29 Creatinine 1.3 mg/dL (0.6-1.2) H 06/15/21 02:29 Estimated GFR (MDRD) 55 (>89) L 06/15/21 02:29 Glucose 112 mg/dL (70-100) H 06/15/21 02:29 Estimat Average Glucose 117 mg/dL (70-100) H 06/15/21 02:29 Hemoglobin A1c % 5.7 % (4.27-6.07) 06/15/21 02: Calcium 9.4 mg/dL (8.5-10.3) 06/15/21 02: Total Bilirubin 0.6 mg/dL (0.2-1.0) 06/15/21 02:29 AST 18 IU/L (10-42) 06/15/21 02:29 ALT 11 IU/L (10-60) 06/15/21 02:29 Alkaline Phosphatase 77 IU/L (42-121) 06/15/21 02:29 Troponin I High Sens 8.2 ng/L (2.3-19.7) 06/15/21 02: Total Protein 8.0 g/dL (6.7-8.2) 06/15/21 02: Albumin 4.0 g/dL (3.2-5.5) 06/15/21 02:29 Globulin 4.0 g/dL (2.1-4.2) 06/15/21 02: Albumin/Globulin Ratio 1.0 (1.0-2.2) 06/15/21 02:29 Triglycerides 226 mg/dL (-149) H 06/15/21 02:29 Cholesterol 218 mg/dL (-199) H 06/15/21 02:29 LDL Cholesterol, Calc 141 mg/dL (-129) H 06/15/21 02:29 VLDL Cholesterol 45 mg/dL 06/15/21 02:29 HDL Cholesterol 32 mg/dL (60-) L 06/15/21 02:29 LDL/HDL Ratio 4.4 (<3.6) 06/15/21 02:29 Cholesterol/HDL Ratio 6.8 (<5.0) 06/15/21 02:29 Lipase 39 U/L (22-51) 06/15/21 02:29 TSH 3.84 uIU/mL (0.34-5.60) 06/15/21 02:29 Nasal Adenovirus (PCR) NOT DETECTED 06/15/21 03:06 Nasal B. parapertussis DNA (PCR) NOT DETECTED 06/15/21 03:06 Nasal Coronavir 229E PCR NOT DETECTED 06/15/21 03:06 Nasal Coronavir HKU1 PCR NOT DETECTED 06/15/21 03:06 Nasal Coronavir NL63 PCR NOT DETECTED 06/15/21 03:06 Nasal Coronavir OC43 PCR NOT DETECTED 06/15/21 03:06 Nasal Enterovir/Rhinovir PCR NOT DETECTED 06/15/21 03:06 Nasal Influenza B PCR NOT DETECTED 06/15/21 03:06 Nasal Influenza A PCR NOT DETECTED 06/15/21 03:06 Nasal Parainfluen 1 PCR NOT DETECTED 06/15/21 03:06 Nasal Parainfluen 2 PCR NOT DETECTED 06/15/21 03:06 Nasal Parainfluen 3 PCR NOT DETECTED 06/15/21 03:06 Nasal Parainfluen 4 PCR NOT DETECTED 06/15/21 03:06 Nasal RSV (PCR) NOT DETECTED 06/15/21 03:06 Nasal B.pertussis DNA PCR NOT DETECTED 06/15/21 03:06 Nasal C.pneumoniae (PCR) NOT DETECTED 06/15/21 03:06 Constantin Human Metapneumo PCR NOT DETECTED 06/15/21 03:06 Nasal M.pneumoniae (PCR) NOT DETECTED 06/15/21 03:06 Nasal SARS-CoV-2 (PCR) NOT DETECTED 06/15/21 03:06 Sepsis Event Note (H) - Evaluation Current Stage of Sepsis: Ruled out ABX Reporting Has patient been on IV antibiotics over the past 48 hours?: No
[2021-06-15] MEDS ORDERED: ATORVASTATIN 40 MG TABLET PO SCH (21:00)
[2021-06-15] MEDS: NICOTINE 7 MG PATCH TOP SCH (21:26)
[2021-06-16] MEDS: SODIUM CHLORIDE FLUSH 0.9% 10 ML SYRINGE IVP SCH ×2 (00:52→08:27)
[2021-06-16 04:27] LABS: BASOPHILS % (AUTO) 0.3 %; EOSINOPHILS # (AUTO) 0.3 10^3/uL (0.0-0.7); EOSINOPHILS % (AUTO) 2.6 %; HCT - HEMATOCRIT 37.2 % (42.0-52.0); HGB - HEMOGLOBIN 12.2 g/dL (14.0-18.0); LYMPHOCYTES # (AUTO) 3.4 10^3/uL (1.5-3.5); LYMPHOCYTES % (AUTO) 35.4 %; MEAN CORPUSCULAR HEMOGLOBIN 28.7 pg (27.0-31.0); MEAN CORPUSCULAR HGB CONC 32.8 g/dL (32.0-36.0); MEAN CORPUSCULAR VOLUME 87.5 fL (80.0-94.0); MEAN PLATELET VOLUME 10.4 fL (7.4-11.4); MONOCYTES # (AUTO) 0.7 10^3/uL (0.0-1.0); MONOCYTES % (AUTO) 7.6 %; NEUTROPHILS # (AUTO) 5.1 10^3/uL (1.5-6.6); NEUTROPHILS % (AUTO) 53.8 %; PLT - PLATELET COUNT 304 10^3/uL (130-450); RED BLOOD COUNT 4.25 10^6/uL (4.70-6.10); RED CELL DISTRIBUTION WIDTH 13.4 % (12.0-15.0); WHITE BLOOD COUNT 9.5 x10^3/uL (4.8-10.8)
[2021-06-16 04:37] LABS: POTASSIUM 3.6 mmol/L (3.5-5.0)
[2021-06-16] MEDS: ACETAMINOPHEN 325 MG TABLET PO PRN ×2 (05:35→13:50)
[2021-06-16 08:23] VITALS: BP 147/74
[2021-06-16] MEDS: NICOTINE 14 MG PATCH TOP SCH (08:26)
[2021-06-16] MEDS: CLOPIDOGREL 75 MG TABLET PO SCH (08:27)
[2021-06-16] MEDS: NICOTINE 7 MG PATCH TOP SCH (08:27)
[2021-06-16] MEDS ORDERED: FENOFIBRATE 48 MG TABLET PO SCH (09:00)
[2021-06-16] MEDS ORDERED: CLOPIDOGREL 75 MG TABLET PO SCH (09:00)
[2021-06-16] MEDS ORDERED: ASPIRIN EC 325 MG TABLET PO SCH (09:00)
--- NOTE | 2021-06-16 11:02 | Discharge Plan ---
Discharge Plan Problem Reviewed?: Yes Disposition: Home, Self Care Condition: Stable Prescriptions: Atorvastatin [Lipitor] 40 mg PO QPM #30 tablet Nicotine 7 mg Patch [Nicoderm] 1 patch TOP DAILY #7 patch Nicotine 14 mg Patch [Nicoderm] 1 patch TOP DAILY #7 patch Clopidogrel [Plavix] 75 mg PO DAILY #30 tablet Fenofibrate [Tricor] 144 mg PO DAILY #30 tablet Diet: Cardiac Activity Restrictions: Activity as Tolerated Shower Restrictions: No Driving Restrictions: Yes (No driving due to loss of vision one eye) Health Concerns: You are a patient with high cholesterol, high blood pressure, and a smoker and presented with left body numbness and right religion pain with right eye vision loss. In evaluating you, we found you to have a small stroke. We think it is an ischemic stroke not an embolic stroke. You and I discussed the difference between the 2. While here you do not have any arrhythmias. You have no paralysis, and your numbness and tingling on your left body have resolved. You still have vision loss in your right eye. Plan of Treatment: 1. You have done some advance care planning with social work. You will need to get your paperwork notarized. But before you left, we have filled out a POLST form to include in your medical record. 2. To reduce your risk of stroke, we are reducing all the things that lead to narrowing of the arteries. That includes: A cholesterol-lowering medicine called Lipitor/Tricor, an aspirin a day which is a blood thinner that acts on platelets, another blood thinner called Plavix was also acts on platelets, and you are already on a blood pressure pill called lisinopril. 3. You will need to see your primary care provider. Dr. Kerns at the [facility] will need to decide between Plavix or aspirin in about 3 weeks. You will be on 1 [address] 4[address]. Kerns will also have to do your blood work. We need to recheck your cholesterol. We also need to check to make sure there is no interaction between your TriCor and your Lipitor. 5. Please, please, please stop smoking. You are already on a nicotine patch. Put the 14 mg a day patch on for a week, then lower it to 7 mg a day for a week. You are looking to see if you can make an appointment with a hypnotist. I would also asked Dr. Kerns to prescribe Ativan and Wellbutrin for you tempo rarily until you can stay off cigarettes successfully. Care Goals: To reduce your risk of heart attack, stroke, and peripheral vascular disease (reduced blood flow to your legs) as much as possible by controlling your cigarettes, blood pressure, and cholesterol. Assessment: You will try and follow through about stopping cigarettes. But it may be very difficult for you to do. No Smoking: If you smoke, Please STOP! Call for help. Follow-up with: MEGHNA LR MD [Primary Care Provider] -
--- NOTE | 2021-06-16 14:34 | ADVANCE CARE PLANNING NOTE ---
Advance Care Planning - Planning Encounter Date: 06/16/21 Time: 09:00 Purpose: patient wants to make sure we know his code status Parties in Attendance: Hospitalist, patient and PA Student Irina Parker Decisional Capacity of the Patient: alert, oriented, and lucid. makes his own decisions. - Diagnosis for Encounter (1) CVA (cerebral vascular accident) Qualifiers: CVA mechanism: occlusion - Encounter Subjective/Patient's Story: He lives at home with his . 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 She has had some re cent health issues of her own and he does most of the work around the house. He regards himself as independent. He has a history of high blood pressure, high cholesterol, chronic kidney disease, and is an every day smoker. He presented to the hospital with right-sided restorationism pain. That it went stabbing into behind his right eye. He can see things but the upper outer quadrant of vision is not visualized. In other words if he looks at the room to 204, he can see the 204 but cannot see the first 2. He did have temporary left body dysesthesia and numbness but that is all resolved. He is back to being ambulatory, without dysphagia, dysarthria. He does know that if he were ever to become disabled enough to require placement in a intermediate facility he would not want that done. As such he mentioned this morning that he would like to make sure that we have documentation that he is a DO NOT RESUSCITATE. While his may be able to go to a intermediate facility for pending placement, he has no intention of ever doing that. He wants us to make sure that we treat him aggressively for everything including blood transfusions, antibiotics, temporary dialysis or temporary NG tube feeds. However if all of that does not work and he cannot regain independence to go back to living independently, he wants us to let him go. Objective/Medical Story: Patient is a 71-year-old male who presented to the ED with complaint of pain behind his right eye which started around noon. His vision then became blurry. He did not immediately seek medical attention. Tonight around 10 PM while he was getting ready for bed he felt "woozy". He also began experiencing left leg and left arm numbness. Furthermore he described a feeling of tingling and numbness on his lips and a metallic taste. As a result EMS was called and he was brought to the ED for evaluation. By the time of exam his symptoms had resolved except for very faint numbness in his left leg. Work-up in the ED included CT of the head without contrast which was negative for any acute intracranial pathology. Telestroke consult was made and recommendation was for an MRI/MRA head and neck for further work-up. As a result the patient was presented for admission. At bedside he was resting comfortably. He denied chest pain, dyspnea, abdominal pain, nausea, vomiting, fever or chills. He reports feeling bloated. His neuro exam was negative. History - Past Medical History Cardiovascular: reports: Hypertension, High cholesterol Neuro: reports: Headaches GI: reports: Hepatitis Musculoskeletal: reports: Osteoarthritis, Other MRSA Hx?: No Other Past Medical History: chronic rt knee pain - Past Surgical History Other past surgical history: He denies any surgical history Head CT was negative for acute changes. MRI a showed nonvisualization of the left vertebral artery. Neck MRA also confirmed poorly visualized left vertebral artery suspected to be occluded throughout its course. Brain MRI showed restricted diffusion within the right occipital lobe with corresponding hypodense ADC signal consistent with subacute ischemia. Treatment has been with dual platelet therapy. Control blood pressure. And addition of atorvastatin for hyperlipidemia. We have also encouraged him to stop smoking and he is on a nicotine patch. Goals of Care: Risk of stroke and heart attack and peripheral vascular disease through stopping smoking, control of his risk factors. And he refuses to be placed in a intermediate facility. He is willing to go there if it is a temporary problem such as a hip fracture requiring rehab. But not if it is a massive stroke requiring prolonged rehab and probable care afterwards. Plan: He is filling out an advance care directive for the hospital. He will need to get it notarized and has been working with social work. He has asked me to document for the hospital that he is a DO NOT RESUSCITATE and as such we filled out a POLST form together. [facility] and already has advanced directives at the [place]. Code Status: Do Not Attempt Resuscitation
--- NOTE | 2021-06-16 15:27 | DISCHARGE SUMMARY ---
Discharge Summary Admit Date: 06/15/21 Discharge Date: 06/16/21 Discharging Provider: Gabriela Arellano MD Primary Care Provider: Ese Kerns MD ([facility]) Code Status: Do Not Attempt Resuscitation Condition at Discharge: Stable Discharge Disposition: 01 Home, Self Care - DIAGNOSES Discharge Diagnoses with Status of Each Condition: 1. Subacute stroke right occipital lobe 2. Hypertension 3. Hyperlipidemia 4. Tobacco abuse 5. Osteoarthritis 6. Acute kidney failure 7. Elevated white cell count 8. Occlusion of vertebral artery - HPI History of Present Illness: Patient is a 71-year-old male who presented to the ED with complaint of pain behind his right eye which started around noon. His vision then became blurry. He did not immediately seek medical attention. Tonight around 10 PM while he was getting ready for bed he felt "woozy". He also began experiencing left leg and left arm numbness. Furthermore he described a feeling of tingling and numbness on his lips and a metallic taste. As a result EMS was called and he was brought to the ED for evaluation. By the time of exam his symptoms had resolved except for very faint numbness in his left leg. Work-up in the ED included CT of the head without contrast which was negative for any acute intracranial pathology. Telestroke consult was made and recommendation was for an MRI/MRA head and neck for further work-up. As a result the patient was presented for admission. At bedside he was resting comfortably. He denied chest pain, dyspnea, abdominal pain, nausea, vomiting, fever or chills. He reports feeling bloated. His neuro exam was negative. - Past Medical History Cardiovascular: reports: Hypertension, High cholesterol Neuro: reports: Headaches GI: reports: Hepatitis Musculoskeletal: reports: Osteoarthritis, Other MRSA Hx?: No Other Past Medical History: chronic rt knee pain - Past Surgical History Other past surgical history: He denies any surgical history . - CONSULTS | PROCEDURES Procedures: 1. Head CT without acute intracranial process. Moderate chronic atrophy and microvascular ischemic changes. 2. Brain MRI with restricted diffusion within the right occipital lobe with corresponding hypodense ADC signal most consistent with subacute ischemia. No hemorrhage. Moderate chronic and atrophic ischemic changes. 3. Neck MR angiogram with poorly visualized left vertebral artery suspected to be occluded throughout its course. 4. MR angiogram of brain with intracranial arteries normal size and intraluminal flow signal. Flow within the paired anterior cerebral arteries is normal and symmetric. Flow within the middle cerebral arteries is normal and symmetric. Anterior communicating artery is seen. No definitive signal within the region of the left vertebral artery. Slight vertebral artery dominance. 5. Echocardiogram with ejection fraction 60 to 65%, normal diastolic G, RV normal size and function, no atrial shunt, no valvular heart disease. 6. Telemetry for close to 48 hours without arrhythmia. - HOSPITAL COURSE Hospital Course: Observation status for a TIA. Once MRA came back he was changed to inpatient status for stroke. Over the next few hours the patient remained stable. He states that all of the paresthesias and numbness in the left side of his body is gone. He remains with the hemianopsia of his right eye where the upper outer left quadrant of vision is not present. He has no dysphagia, dysarthria. No cerebellar ataxia. Treatment consisted of dual platelet therapy with Plavix and aspirin. He remained on his lisinopril. Atorvastatin and TriCor were started for triglycerides 226, cholesterol 218, LDL 141, HDL 32. He is acute kidney insufficiency resolved. Creatinine was 1.3 on admission and was 1.0 by the time of discharge. He was also given numerous pamphlets and support opportunities with regards to stopping smoking. [place]. I spent 20 minutes discussing pathophysiology of smoking and peripheral vascular disease. He says that he will try to stop smoking but he does not know if he is successful. Also started on nicotine patches. I have asked his primary care provider to: Please see him in follow-up soon as possible. He will need to come off Plavix or aspirin in the next 21 days. You need to check his lipid panel and CPK because of the atorvastatin and TriCor. He also needs to stop smoking and is being on a tapered nicotine patch. Patient was anxious to go home. Symptoms have resolved enough that he did not want to be in the hospital. He unexpectedly improve much more than we thought considering the large distribution of right subacute injury. Temperature was 36.4. Heart rate 70. He remained in sinus throughout his stay. Blood pressure 147/74. Respirations 18. 98% on room air. He is 6 feet 1 inches tall. His weight is 101 kg. An alert oriented pleasant male. Before he left he wanted me to address CODE STATUS to make sure that if he ever ended up here that we would know what he wanted. As such, please see advance care planning conversation under separate dictated note. Neck is supple. No bruits. Lungs are clear to auscultation and percussion without increased respiratory effort. Regular rate and rhythm. The abdomen is soft, nontender. He is alert and oriented to person place and time. No cranial nerve deficit other He does have visual field deficit present in the upper outer quadrant of left side of vision. Pupils are equal and reactive. Upper and lower extremity strength testing is normal. There are no tremors. He is able to come from a supine to sitting to standing position without any help. No ataxia. Cerebellar exam is normal. Greater than 30 minutes was spent coordinating discharge. Instructed on follow- up with his primary care provider. The labs she will need to get. He needed us to send prescriptions to a local pharmacy to [facility]. And from there [facility] I gave him 30 days prescription since it would be difficult for him to see the [facility] in [place]. And then I gave him another 30 days through the [facility]. And I have sent a copy of the discharge summary to the [facility] in [place]. - ALLERGIES Allergies/Adverse Reactions: Allergies Allergy/AdvReac Type Severity Reaction Status Date / Time iodine Allergy Anaphylaxis Verified 06/15/21 02:28 shellfish derived Allergy Anaphylaxis Verified 06/15/21 02:29 - MEDICATIONS Home Medications: Ambulatory Orders Medication Instructions Recorded Confirmed Lisinopril [Zestril] 10 mg PO DAILY 06/15/21 06/15/21 Aspirin EC [Ecotrin] 325 mg PO DAILY tablet 06/16/21 Atorvastatin [Lipitor] 40 mg PO QPM #30 tablet 06/16/21 Clopidogrel [Plavix] 75 mg PO DAILY #30 tablet 06/16/21 Fenofibrate [Tricor] 144 mg PO DAILY #30 tablet 06/16/21 Nicotine 14 mg Patch [Nicoderm] 1 patch TOP DAILY #7 patch 06/16/21 Nicotine 7 mg Patch [Nicoderm] 1 patch TOP DAILY #7 patch 06/16/21 - LABS Result Diagrams: 06/16/21 04:12 06/16/21 04:12 - SEPSIS Current Stage of Sepsis: Ruled out
== END 2021-06-16 14:20 | disposition home or self-care (01) | DRG 65 ==
LOC: EDUNIT# → ED 02:17 → MS2 03:44 → OBSVTOIN 16:22
PROVIDERS: ADMIT Internal Medicine; ATTEND Specialist
DX: I63.89 Other cerebral infarction (principal); N17.9 Acute kidney failure, unspecified; I67.82 Cerebral ischemia; H53.47 Heteronymous bilateral field defects; H53.8 Other visual disturbances; R43.8 Other disturbances of smell and taste; I10 Essential (primary) hypertension; R29.700 NIHSS score 0; E78.5 Hyperlipidemia, unspecified; F17.210 Nicotine dependence, cigarettes, uncomplicated; D72.829 Elevated white blood cell count, unspecified; M17.11 Unilateral primary osteoarthritis, right knee; R73.03 Prediabetes; R70.0 Elevated erythrocyte sedimentation rate; Z66 Do not resuscitate; R20.2 Paresthesia of skin; Z20.822 Contact with and (suspected) exposure to COVID-19; I48.91 Unspecified atrial fibrillation; I65.02 Occlusion and stenosis of left vertebral artery; Z79.899 Other long term (current) drug therapy
CPT/HCPCS: 0202U; 36415; 70450; 70544; 70549; 70553; 80048; 80053; 80061; 83036; 83690; 84443; 84484; 85025; 85610; 85651; 85730; 93005; 93306; 97165; 99284; 99285; A9270; A9585; 83721